=== PATIENT | female | born 1980 | race African-American/Black ===

== ENCOUNTER 2019-08-24 12:52 | Emergency (ER) | payer MEDICAID ==
[~2019-08-24] VITALS: Ht 167.6 cm; Wt 68.0 kg
--- NOTE | 2019-08-24 13:30 | NUR ---
patient caem in to the er c/o cough, fever, body aches x 1 week. On room air, breathing evenly and unlabored. kept comfortable, will continue to monitor accordingly.
--- NOTE | 2019-08-24 14:20 | NUR ---
Patient discharged to home in stable condition. Written and verbal after care instructions given. Patient verbalizes understanding of instruction.
[2019-09-29 12:46] VITALS: BP 120/71
== END 2019-08-24 14:20 | disposition home or self-care (01) ==
LOC: ER 12:53
DX: J06.9 Acute upper respiratory infection, unspecified (principal)

== ENCOUNTER 2021-07-13 01:29 | Emergency (ER) | payer MEDICAID ==
[~2021-07-13] VITALS: Ht 167.6 cm; Wt 74.8 kg
--- NOTE | 2021-07-13 01:55 | NUR ---
PATIENT BIBSELF. 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 PATIENT IS A/O X 4, RR EVEN AND UNLABORED, NO SOB NOTED. PATIENT CONNECTED TO CARDIAC AND POX MONITOR.
[2021-07-13] MEDS ORDERED: PANTOPRAZOLE 40 MG VIAL ONE ×2 (02:00→02:20)
[2021-07-13] MEDS ORDERED: ONDANSETRON HCL/PF 4 MG/2 ML VIAL ONE (02:00)
[2021-07-13 02:30] LABS: BASOPHILS # (AUTO) 0.1 K/uL (0.0-0.2); BASOPHILS % (AUTO) 1.7 % (0.0-2.0); EOSINOPHILS % (AUTO) 1.5 % (0.0-6.0); HEMATOCRIT 41 % (33-45); LYMPHOCYTES # (AUTO) 2.4 K/uL (0.8-4.8); LYMPHOCYTES % (AUTO) 33.3 % (20.0-44.0); MEAN CORPUSCULAR HGB CONC 35 g/dl (31.0-36.0); MEAN CORPUSCULAR VOLUME 91 fL (82-100); MONOCYTES # (AUTO) 0.6 K/uL (0.1-1.30); MONOCYTES % (AUTO) 8.1 % (2.0-12.0); NEUTROPHILS # (AUTO) 3.9 K/uL (1.8-8.9); NEUTROPHILS % (AUTO) 55.4 % (43.0-81.0); PLATELET COUNT (AUTO) 266 K/uL (150-450); RED BLOOD CELL COUNT(AUTO) 4.45 MIL/uL (4.0-5.2); WHITE BLOOD COUNT (AUTO) 7.1 K/uL (4.3-11.0)
[2021-07-13] MEDS: IV NS 0.9% 500 ML BAG IV ONE (02:32)
[2021-07-13] MEDS: ONDANSETRON HCL/PF 4 MG/2 ML VIAL IVP ONE (02:32)
[2021-07-13] MEDS: PANTOPRAZOLE 40 MG VIAL IV ONE (02:32)
[2021-07-13 02:41] LABS: CALCIUM, SERUM 8.6 mg/dL (8.5-10.1); CREATININE 0.9 mg/dL (0.6-1.3); POTASSIUM 3.4 mmol/L (3.5-5.1)
[2021-07-13 02:47] LABS: BILIRUBIN,DIRECT 0.2 mg/dL (0.0-0.2); BILIRUBIN,TOTAL 0.9 mg/dL (0.2-1.0); TOTAL PROTEIN, SERUM 8.1 g/dL (6.4-8.2)
--- NOTE | 2021-07-13 03:10 | NUR ---
URINE COLLECTED AND SENT TO LAB
[2021-07-13 03:31] LABS: BILIRUBIN,URINE NEGATIVE (NEGATIVE); COLOR,URINE YELLOW (YELLOW); LEUKOCYTE ESTERASE ,URINE NEGATIVE (NEGATIVE); NITRITE, URINE POSITIVE (NEGATIVE); PROTEIN,URINE NEGATIVE (NEGATIVE); UGLUCOSE NEGATIVE (NEGATIVE); UROBILINOGEN,URINE 0.2 EU/dL (0.2)
[2021-07-13 03:37] LABS: BACTERIA,URINE Many /HPF (None Seen); MUCUS,URINE Few /LPF (None Seen); RBC,URINE 0-2 /HPF (0-2); SQUAMOUS EPITHELIAL CELL,UR Few /HPF (None Seen); WBC,URINE 21-50 /HPF (0-3)
--- NOTE | 2021-07-13 03:45 | NUR ---
PT BEING TAKEN TO CT VIA [facility]
--- NOTE | 2021-07-13 03:55 | NUR ---
PT RETURNED FROM CT
[2021-07-13] MEDS ORDERED: NITR100C6 PO (04:56)
[2021-07-13] MEDS ORDERED: PANT40TA2 PO (05:00)
--- NOTE | 2021-07-13 05:28 | NUR ---
ULTRASOUND AT BEDSIDE
--- NOTE | 2021-07-13 07:18 | NUR ---
Patient discharged to home in stable condition. Written and verbal after care instructions given. Patient verbalizes understanding of instruction.IV line discontinued and gentle pressure applied to site and bleeding controlled.
[2021-07-13 07:19] VITALS: BP 116/65
== END 2021-07-13 07:19 | disposition home or self-care (01) ==
LOC: ER 01:31
DX: N39.0 Urinary tract infection, site not specified (principal); K92.0 Hematemesis; F12.10 Cannabis abuse, uncomplicated
CPT/HCPCS: 36415; 71045; 74176; 76705; 76856; 80048; 80076; 81001; 83690; 84703; 85025; 85730; 86850; 87077; 87086; 87186; 96374; 96375; 99285; C9113; J2405; J7040